=== PATIENT | female | born 1980 | race Caucasian/White ===

== ENCOUNTER 2022-09-29 22:15 | Emergency (ER) | payer BC, MEDICAID, SELFPAY ==
[2022-09-29 22:24] VITALS: BP 170/106; PULSE 104; RESP 20; TEMP 37.3; O2SAT 99; BMI 33.5
--- NOTE | 2022-09-30 00:05 | ED_ITS ---
HPI - General Adult General: Chief complaint: General Medical Stated complaint: lump on right side of jaw Time Seen by Provider: 09/29/22 23:33 History of Present Illness: Ms. Torre is a 42-year-old lady on methotrexate presenting to the emergency department for facial swelling and pain. She reports onset of symptoms atraumatic approximately 2 weeks ago with initial just mild discomfort however is now developed redness, induration, and pain with opening her mouth. She has seen primary care and was started on steroids as well as a course of antibiotics and now subsequently switched to clindamycin. She reports a history of sialolithiasis and this does feel somewhat similar that has persisted. Other than generalized malaise denies specific symptoms. End HPI Onset (ago): week(s) Location: face Radiation: neck Severity: moderate Quality: aching and dull Pain Consistency: constant Relieving factors: none Exacerbating factors: eating and movement Associated symptoms: Reports no associated symptoms Review of Systems General: Reports: 10 or more systems reviewed and unremarkable except in HPI and below PFSH ED PFSH: Medical History (Updated 10/07/22 @ 19:00 by Chucho Sousa MD) No significant past medical history Surgical History (Updated 10/07/22 @ 19:00 by Chucho Sousa MD) No significant past surgical history Physical Exam Const: COMMON NORMALS: alert GENERAL APPEARANCE: cooperative and well developed HENMT: COMMON NORMALS: normocephalic and atraumatic HEAD & SCALP: normoc ephalic and atraumatic OTHER: Right submandibular swelling and erythema with induration. There is mild trismus however no evidence of Ludewig's angina or distortion of anatomy. Eye: COMMON NORMALS: conjunctivae normal CONJUNCTIVA: Yes conjunctivae normal SCLERA: sclerae normal Neck/C-Spine: COMMON NORMALS: supple GENERAL: Yes trachea midline and No tender Resp: COMMON NORMALS: clear to auscultation bilaterally EFFORT & INSPECTION: Yes able to speak in complete sentences AUSCULTATION: clear to auscultation bilaterally Cardio: COMMON NORMALS: regular rate and regular rhythm RATE: regular rate RHYTHM: regular rhythm GI: COMMON NORMALS: Soft to palpation PALPATION: Yes Soft to palpation and No Tenderness to palpation present (GI) Extremity: GENERAL: Yes normal exam except as noted and No edema Neuro: COMMON NORMALS: moves all extremities SENSORIUM/ORIENTATION: Yes alert and No Orientation impaired Psych: COMMON NORMALS: mental status grossly normal and Normal thought process present THOUGHT PROCESS: Normal thought process present Procedures Abscess I/D Site: neck Side (if applicable): right Sedation/analgesia: midazolam and fentanyl Local Anesthetic: lidocaine 1% and with epi Amount of anesthesia used (mL): 3 Technique: incised with #11 blade Amount of fluid expressed (mL): 5 Irrigation: Yes Packing used?: plain Course Vital Signs: Vital signs: Vital Signs Temperature 99.2 F 09/29/22 22:24 Pulse Rate 107 H 09/30/22 02:57 Respiratory Rate 22 H 09/30/22 02:57 Blood Pressure 186/119 09/30/22 02:57 Pulse Oximetry 95 09/30/22 00:48 Oxygen Delivery Me thod Room Air 09/30/22 02:57 MDM - General Adult Medical Decision Making 42-year-old lady presenting with right-sided jaw swelling. Prior treatment with antibiotics and steroids without significant movement. Exam as above. No evidence of acute airway compromise. Labs with no leukocytosis, normal hemoglobin and platelet count. Metabolic pa vane without electrode arrangement. ESR and CRP elevated. hCG negative. CT neck demonstrates large right posterior molar cavity with periapical abscess and focal osteolysis on the lingual side of the mandible as well as large right submandibular space abscess. Discussed with ENT who apparently does not feel comfortable as odontogenic is likely source. Discussed with [facility] in [place], no indication for transfer from their perspective. They will see patient in close follow-up. Patient requires abscess I&D which I will perform. Consent obtained and procedure performed with purulent drainage expressed. No repair complications. Patient had improvement in trismus and pain postprocedure. Clindamycin is an appropriate antibiotic for most difficult infections and we will plan to continue this, I believe lack of improvement most likely from abscess formation/inadequate source control. The results of ED evaluation were discussed with the patient including prescriptions and/or symptomatic cares (if applicable) including appropriate and responsible use, followup plan, and return precautions. The patient verbalized understanding and felt safe for discharge. Medical Records I reviewed the patient's medical records. Lab Data I reviewed the patient's lab results. 09/29/22 00:29 09/29/22 00:[address] 09/30/22 00:24 IMPRESSION: Large right posterior molar cavity and periapical abscess with focal osteolysis of lingual side of the mandible with a large right submandibular space abscess. Laboratory Results WBC 9.1 10^3/uL (4.0-10.0) 09/29/22 00: RBC 3.87 10^6/uL (4.1-5.3) L 09/29/22 00:29 Hgb 12.0 g/dL (11.5-15.3) 09/29/22 00: Hct 35.8 % (37.0-47.0) L 09/29/22 00: MCV 92.5 fl (81-99) 09/29/22 00: MCH 31.0 pg (28.0-34.0) 09/29/22 00: MCHC 33.5 g/dL (30.0-36.0) 09/29/22 00: RDW 13.5 % (12.1-15.1) 09/29/22 00: Plt Count 231 10^3/cmm (130-400) 09/29/22 00: MPV 8.6 fL (7.4-10.4) 09/29/22 00: Neut % (Auto) 74.6 % 09/29/22 00: Lymph % (Auto) 10.3 % 09/29/22 00: [place] % (Auto) 14.3 % 09/29/22 00:29 Eos % (Auto) 0.2 % 09/29/22 00: Baso % (Auto) 0.2 % 09/29/22 00: Neut # (Auto) 6.80 10^3/uL (1.8-7.7) 09/29/22 00: Lymph # (Auto) 0.9 10^3/uL (0.8-4.8) 09/29/22 00: [place] # (Auto) 1.3 10^3/uL (0.2-0.9) H 09/29/22 00: Eos # (Auto) 0.0 10^3/uL (0.0-0.8) 09/29/22 00: Baso # (Auto) 0.0 10^3/uL (0.0-0.1) 09/29/22 00: Nucleated RBC % (auto) 0 % 09/29/22: Nucleated RBCs # 0.0 /100WBC 09/29/22: ESR 18 mm/hr (0-15) H 09/29/22: Sodium 136 mmol/L (136-145) 09/29/22: Potassium 4.1 mmol/L (3.5-5.1) 09/29/22: Chloride 101 mmol/L (98-107) 09/29/22: Carbon Dioxide 23 mmol/L (22-29) 09/29/22: Anion Gap 16.1 (5-19) 09/29/22: BUN 9 mg/dL (6-20) 09/29/22: Creatinine 0.6 mg/dL (0.5-0.9) 09/29/22 GFR Calculation 109.1 mL/min (90-130) 09/29/22 Glucose 93 mg/dL (65-115) 09/29/22 Calculated Osmolality 280 mOsm/kg (285-295) L 09/29/22: Lactate 0.9 mmol/L (0.5-2.2) 09/29/22: Calcium 8.2 mg/dL (8.5-10.5) L 09/29/22: Total Bilirubin 0.3 mg/dL (0.15-1.2) 09/29/22: AST 12 U/L (0-32) 09/29/22: ALT 6 U/L (0-33) 09/29/22: Alkaline Phosphatase 43 U/L (35-105) 09/29/22: C-Reactive Protein 221.5 mg/L (0.0-4.9) H 09/29/22: Total Protein 7.3 g/dL (6.6-8.7) 09/29/22: Albumin 3.5 g/dL (3.5-5.2) 09/29/22: Globulin 3.8 g/dL (1.3-4.6) 09/29/22: Procalcitonin 0.05 ng/mL (0-0.5) 04/12/23 00:29 HCG, Qual Negative (Negative) 09/29/22 00:29 Discharge Plan Discharge Patient Disposition: Home Clinical Impression: Submandibular abscess, Dental abscess, Dental caries Condition: Stable Prescriptions: New ondansetron 4 mg tablet,disintegrating 4 mg PO Q8H PRN (Reason: nausea and vomiting) Qty: 15 0RF oxycodone 5 mg tablet 5 mg PO Q4H PRN (Reason: pain) Qty: 20 0RF Discharge Orders: Discharge ED (Routine); Ordered 09/30/22 Ordered By: Chucho Sousa Discharge Diet: Usual diet Discharge Activity: Increase activity as tolerated Patient Instructions: Dental Caries (Cavities), Acute Wound Care (ED), Incision and Drainage (ED), Opioid Safety Activity Restrictions/Additional Instructions: You for visiting the emergency department. You were seen and evaluated for swelling in your jaw and pain. You are found to have a submandibular abscess which was drained. Packing was placed, remove this in 3 days. Please watch for evidence of worsening infection. Return immediately for any difficulty swallowing, increased swelling, fevers, difficulty breathing, or anything else that you are concerned about and feel needs emergency department evaluation. Please continue your clindamycin. I will prescribe oxycodone, use this cautiously as it is an opioid. You may use [id number] medications such as acetaminophen and ibuprofen for pain however please do not exceed the daily recommended dosage as listed on the packaging and please keep in mind that many namebrand medications contain the same active ingredients. Please avoid these medications if previously instructed to do so by another physician due to other underlying medical condition. Please follow-up with your primary care provider. Please call the [facility] scraper group and let them know that I spoke to the on-call physician regarding your care. [address] [place] [address] Return for anything else that you are concerned about and feel needs emergency department evaluation. Stand Alone Forms: Work/School Release Coding Level of Care Code ED Electrical Design Technician for Milana Payton
[2022-09-30] MEDS: morphine 4 mg/mL SDV 1 mL IVP (00:21)
[2022-09-30] MEDS: sodium chloride 0.9% 1,000 ML 999 ML IV (00:21)
--- NOTE | 2022-09-30 00:24 | CTR_ITS ---
PROCEDURE INFORMATION: Exam: CT Neck With Contrast Exam date and time: 09/30/2022 12:42 AM Age: 42 years old Clinical indication: Mass, lump, or swelling in neck; Right; Patient HX: Swelling and redness to RT submandibular region. ; Additional info: Submandibular/neck mass/paim TECHNIQUE: Imaging protocol: Computed tomography of the neck with contrast. Radiation optimization: All CT scans at this facility use at least one of these dose optimization techniques: automated exposure control; mA and/or kV adjustment per patient size (includes targeted exams where dose is matched to clinical indication); or iterative reconstruction. Contrast material: OMNI 350; Contrast volume: 100 ml; Contrast route: INTRAVENOUS (IV); REPORTING DATA: Count of CT and Cardiac NM exams in prior 12 months: This patient has received 0 known CTs and 0 known cardiac nuclear medicine studies in the 12 months prior to the current study. COMPARISON: No relevant prior studies available. RADIATION DOSE METRICS: Total DLP (mGy-cm): 211.47 FINDINGS: Dental: Large periapical abscess of the most posterior right mandibular molar. Additional dental cavity present. Pharynx: Unremarkable. No significant tonsillar enlargement. Larynx: Unremarkable. Epiglottis is normal. Prevertebral and retropharyngeal spaces: Unremarkable. Salivary glands: Unremarkable. No stones. No duct dilation. Thyroid: Normal. No enlarged or calcified nodules. Lymph nodes: Unremarkable. No lymphadenopathy. Trachea: Visualized trachea is unremarkable. Lungs: Unremarkable as visualized. Bones/joints: There is missing cortical bone on the lingual side of right posterior mandible associated with the periapical abscess. Negative for acute fracture. Soft tissues: Mass present in the soft tissues of right submandibular space. Central low-attenuation with peripheral enhancement of the tissues. Size dimensions about 3.2 cm x 3.2 cm x 2.9 cm. Surrounding soft tissue edema. No soft tissue gas. CT/CT neck w con* [id number] IMPRESSION: Large right posterior molar cavity and periapical abscess with focal osteolysis of lingual side of the mandible with a large right submandibular space abscess.
[2022-09-30 00:46] LABS: Erythrocyte Sedimentation Rate 18 mm/hr (0-15)
[2022-09-30 00:48] VITALS: BP 153/108; PULSE 96; RESP 23; O2SAT 95
[2022-09-30 00:48] LABS: Basophils % 0.2 %; Eosinophils % 0.2 %; Hematocrit 35.8 % (37.0-47.0); Lymphocytes # 0.9 10^3/uL (0.8-4.8); Lymphocytes % 10.3 %; Mean Corpuscular HGB Conc 33.5 g/dL (30.0-36.0); Mean Corpuscular Volume 92.5 fl (81-99); Mean Platelet Volume 8.6 fL (7.4-10.4); Monocytes # 1.3 10^3/uL (0.2-0.9); Monocytes % 14.3 %; Neutrophils % 74.6 %; Nucleated Red Blood Cells % 0 %; Platelet Count 231 10^3/cmm (130-400); Red Blood Count 3.87 10^6/uL (4.1-5.3); Red Cell Distribution Width 13.5 % (12.1-15.1); White Blood Count 9.1 10^3/uL (4.0-10.0)
[2022-09-30] MEDS: iohexol 350 mg/mL 500 mL Btl (per mL) IV (00:49)
[2022-09-30 01:01] LABS: HCG, Serum Qual Negative (Negative)
[2022-09-30 01:06] LABS: Alanine Aminotransferase 6 U/L (0-33); Albumin Level 3.5 g/dL (3.5-5.2); Alkaline Phosphatase 43 U/L (35-105); Anion Gap 16.1 (5-19); Aspartate Amino Transferase 12 U/L (0-32); Blood Urea Nitrogen 9 mg/dL (6-20); C Reactive Protein 221.5 mg/L (0.0-4.9); Calcium 8.2 mg/dL (8.5-10.5); Carbon Dioxide 23 mmol/L (22-29); Chloride 101 mmol/L (98-107); Globulin 3.8 g/dL (1.3-4.6); Glomerular Filtration Rate 109.1 mL/min (90-130); Glucose 93 mg/dL (65-115); Osmolality Calculated 280 mOsm/kg (285-295); Potassium 4.1 mmol/L (3.5-5.1); Sodium 136 mmol/L (136-145); Total Bilirubin 0.3 mg/dL (0.15-1.2); Total Protein 7.3 g/dL (6.6-8.7)
[2022-09-30 01:07] LABS: Lactate (Lactic Acid level) 0.9 mmol/L (0.5-2.2)
[2022-09-30 01:13] LABS: Procalcitonin 0.05 ng/mL (0-0.5)
[2022-09-30 02:57] VITALS: BP 186/119; PULSE 107; RESP 22; O2SAT 100
[2022-09-30] MEDS: fentaNYL 50 mcg/mL INJ 2mL IVP (03:01)
[2022-09-30] MEDS: midazolam 1 mg/mL INJ 2 mL 2 MG IVP (03:03)
[2022-09-30] MEDS: lidocaine-epi 1% 20 mL INJ INJECTION (03:04)
[2022-09-30] MEDS: clindamycin 600 MG/50 ML PREMIX 100 MG IV (03:45)
[2022-09-30] MEDS: oxyCODONE 5 mg IR Tab/Cap 10 MG PO (03:50)
--- NOTE | 2022-10-06 11:17 | DCPLANNER ---
esthetician and manager medical spa called patient due to no primary care - patient sees Luis Carlos Paulson at [facility] in [place]
== END 2022-09-30 04:26 | disposition home or self-care (01) ==
PROVIDERS: Emergency Provider Emergency Medicine; PCP Nurse Practitioner
DX: K12.2 Cellulitis and abscess of mouth (principal); K04.7 Periapical abscess without sinus; K02.9 Dental caries, unspecified
CPT/HCPCS: 41017; 70491; 80053; 83605; 84145; 84703; 85025; 85651; 86140; 87070; 87075; 87077; 87186; 87205; 96365; 96375; 99285; J2250; J2270; J3010; J3490; J7030; Q9967

== ENCOUNTER → 2023-08-12 09:07 | Outpatient (BNVA) | payer BC, MEDICAID, SELFPAY | PROVIDERS: PCP Nurse Practitioner; Referring Provider Nurse Practitioner; Visit Provider Nurse Practitioner | DX: M25.512 Pain in left shoulder (principal); M19.011 Primary osteoarthritis, right shoulder | CPT/HCPCS: 73030 ==

== ENCOUNTER 2023-11-05 22:20 | Emergency (ER) | payer BC, MEDICAID, SELFPAY ==
[2023-11-05 23:01] VITALS: BP 167/96; PULSE 75; RESP 17; TEMP 37.2; O2SAT 97; BMI 37.8
[2023-11-06 01:10] LABS: Basophils % 0.6 %; Eosinophils # 0.1 10^3/uL (0.0-0.8); Hematocrit 37.1 % (36-47); Lymphocytes # 1.5 10^3/uL (0.8-4.8); Lymphocytes % 30.2 %; Mean Corpuscular HGB Conc 33.4 g/dL (30-55); Mean Corpuscular Hemoglobin 30.5 pg (27-33); Mean Corpuscular Volume 91.4 fl (85-98); Mean Platelet Volume 8.8 fL (7.4-10.4); Monocytes # 0.5 10^3/uL (0.2-0.9); Monocytes % 9.9 %; Neutrophils % 56.9 %; Nucleated Red Blood Cells % 0 %; Platelet Count 230 10^3/cmm (157-399); Red Blood Count 4.06 10^6/uL (3.85-5.65); Red Cell Distribution Width 13.2 % (12.1-15.1); White Blood Count 4.93 10^3/uL (3.29-11.43)
--- NOTE | 2023-11-06 01:36 | XRR_ITS ---
PROCEDURE INFORMATION: Exam: XR Right Elbow Exam date and time: 11/06/2023 1:43 AM Age: 43 years old Clinical indication: Right; Patient HX: C/O pain and swelling to RT elbow x 1 week. No injury. History of lupus. ; Additional info: Medial R elbow pain TECHNIQUE: Imaging protocol: Radiologic exam of the right elbow. Views: 3 or more views. COMPARISON: No relevant prior studies available. FINDINGS: Bones/joints: Small intra-articular loose bodies in the ulnar trochlear joint measuring up to 2 mm. No donor site identified. Small joint effusion at the elbow. Soft tissues: Normal. XR/XR elbow RT min 3V* [id number] IMPRESSION: 1. Small intra-articular loose bodies in the ulnar trochlear joint measuring up to 2 mm. No donor site identified. 2. Small joint effusion at the elbow.
--- NOTE | 2023-11-06 01:38 | ED_ITS ---
HPI - Extremity Problem 2 General: Chief complaint: Extremity Problem,Nontraumatic Stated complaint: left arm swelling Time Seen by Provider: 11/06/23 01:27 History of Present Illness: 43-year-old female presenting with media l right elbow pain. It is worsened over several days. 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 She also has a history of lupus so this concerned her. She has a rash over the area, but she had bought a lidocaine patch at the store to put on the area, and wonders if the rash is from that. Associated symptoms: Deny fever(s) Review of Systems 2 Const: Denies: fever(s) PFSH ED 2 PFSH: Medical History Osteoarthritis of right shoulder No significant past medical history Surgical History No significant past surgical history Physical Exam 2 Const: COMMON NORMALS: no acute distress GENERAL APPEARANCE: cooperative; not ill appearing and not frail appearing Neck/C-Spine: GENERAL: Yes trachea midline Chest: CHEST: Yes Symmetrical chest wall rise Resp: COMMON NORMALS: normal respiratory effort, No retractions and No use of accessory muscles Cardio: COMMON NORMALS: regular rate and regular rhythm RATE: regular rate RHYTHM: regular rhythm GI: COMMON NORMALS: Normal to inspection, nondistended, normoactive bowel sounds present Extremity: COMMON NORMALS: no pedal edema NARRATIVE EXTREMITY EXAM: Exam of the right elbow reveals tenderness over the medial epicondyle. There is no lateral tenderness. No elbow joint effusion. No bursitis. No deformity. There is significant pain with resisted wrist flexion and pronation. Neuro: EFRA COMA SCALE: document GCS findings Efra coma scale eye opening: Spontaneous [place]io coma scale verbal response: Orientated Efra coma scale motor response: Obey commands Scio coma scale total score: 15 S ENSORY EXAM: Yes extremities (intact) Psych: COMMON NORMALS: speech normal SPEECH: Yes normal speech Skin: NARRATIVE SKIN EXAM: Small nonraised erythematous papule over the medial forearm. Appears to be contact dermatitis Course 2 Vital Signs: Vital signs: Vital Signs Temperature 99 F 11/05/23 23:01 Pulse Rate 74 11/06/23 02:18 Respiratory Rate 16 11/06/23 02:18 Blood Pressure 146/81 11/06/23 02:18 Pulse Oximetry 97 11/06/23 02:18 Oxygen Delivery Me thod Room Air 11/06/23 02:13 MDM - Extremity (Nontraumatic) Medical Decision Making She is tenderness to palpation over the medial epicondyle. Rash is likely contact dermatitis from the appearance. White blood cell count is normal. CRP is 11. She will be given a tapering dose of steroid. Ice. Bracing. Outpatient follow-up. X-rays negative for effusion, fracture, etc. It is read as potential loose body, but without significant effusion this is questionable and would not change immediate management. Lab Data 11/06/23 00:55 11/06/23 00:55 Radiology Impressions Elbow X-Ray 11/06/23 01:36 IMPRESSION: 1. Small intra-articular loose bodies in the ulnar trochlear joint measuring up to 2 mm. No donor site identified. 2. Small joint effusion at the elbow. Laboratory Results WBC 4.93 10^3/uL (3.29-11.43) 11/06/23 00:55 RBC 4.06 10^6/uL (3.85-5.65) 11/06/23 00:55 Hgb 12.40 g/dL (11.27-16.99) 11/06/23 00:55 Hct 37.1 % (36-47) 11/06/23 00:55 MCV 91.4 fl (85-98) 11/06/23 00:55 MCH 30.5 pg (27-33) 11/06/23 00:55 MCHC 33.4 g/dL (30-55) 11/06/23 00:55 RDW 13.2 % (12.1-15.1) 11/06/23 00:55 Plt Count 230 10^3/cmm (157-399) 11/06/23 00:55 MPV 8.8 fL (7.4-10.4) 11/06/23 00:55 Neut % (Auto) 56.9 % 11/06/23 00:55 Lymph % (Auto) 30.2 % 11/06/23 00:55 [place] % (Auto) 9.9 % 11/06/23 00:55 Eos % (Auto) 2.0 % 11/06/23 00:55 Baso % (Auto) 0.6 % 11/06/23 00:55 Neut # (Auto) 2.80 10^3/uL (1.8-7.7) 11/06/23 00:55 Lymph # (Auto) 1.5 10^3/uL (0.8-4.8) 11/06/23 00:55 [place] # (Auto) 0.5 10^3/uL (0.2-0.9) 11/06/23 00:55 Eos # (Auto) 0.1 10^3/uL (0.0-0.8) 11/06/23 00:55 Baso # (Auto) 0.0 10^3/uL (0.0-0.1) 11/06/23 00:55 Nucleated RBC % (auto) 0 % 11/06/23 00:55 Nucleated RBCs # 0.0 /100WBC 11/06/23 00:55 Sodium 141 mmol/L (136-145) 11/06/23 00:55 Potassium 4.3 mmol/L (3.5-5.1) 11/06/23 00:55 Chloride 106 mmol/L (98-107) 11/06/23 00:55 Carbon Dioxide 25 mmol/L (22-29) 11/06/23 00:55 Anion Gap 14.3 (5-19) 11/06/23 00:55 BUN 11 mg/dL (6-20) 11/06/23 00:55 Creatinine 0.7 mg/dL (0.5-0.9) 11/06/23 00:55 GFR Calculation 90.9 mL/min (90-130) 11/06/23 00:55 Glucose 100 mg/dL (65-115) 11/06/23 00:55 Calculated Osmolality 291 mOsm/kg (285-295) 11/06/23 00:55 Calcium 8.6 mg/dL (8.5-10.5) 11/06/23 00:55 Total Bilirubin 0.2 mg/dL (0.15-1.2) 11/06/23 00:55 AST 18 U/L (0-32) 11/06/23 00:55 ALT 12 U/L (0-33) 11/06/23 00:55 Alkaline Phosphatase 59 U/L (35-105) 11/06/23 00:55 C-Reactive Protein 11.1 mg/L (0.0-4.9) H 11/06/23 00:55 Total Protein 7.7 g/dL (6.6-8.7) 11/06/23 00:55 Albumin 3.8 g/dL (3.5-5.2) 11/06/23 00:55 Globulin 3.9 g/dL (1.3-4.6) 11/06/23 00:55 All radiology interpretation(s) finalized by discharge Discharge Plan Discharge Patient Disposition: Home Clinical Impression: Medial epicondylitis of right elbow Condition: Stable Prescriptions: New Medrol (Gelacio) 4 mg tablets,dose pack See Rx Instructions .ROUTE .COMPLEX Qty: 21 0RF Rx Instructions: orally per package directions No Action methotrexate 2.5 mg/mL solution 2.5 mg PO .weekly folic acid 1 mg tablet 1 mg PO DAILY nifedipine 60 mg tablet extended release 60 mg PO DAILY omeprazole magnesium [Prilosec OTC] 20 mg tablet,delayed release (DR/EC) 20 mg PO DAILY methocarbamol 500 mg tablet 500 mg PO TID celecoxib [Celebrex] 100 mg capsule 100 mg PO BID Qty: 180 0RF ondansetron 4 mg tablet,disintegrating 4 mg PO Q8H PRN (Reason: nausea and vomiting) Qty: 15 0RF Discharge Orders: Discharge ED (Routine); Ordered 11/06/23 Ordered By: Kb Reddy Referrals: Luis Carlos Paulson, HOME PLANNING CONSULTANT SALESPERSON [Primary Care Provider] - 4-7 days Patient Instructions: Tendinitis (ED), Opioid Safety, Pain Management Activity Restrictions/Additional Instructions: The use of a Band-Aid brace as we discussed may help. You can find these at a local pharmacy or [employer]. Ice may help with pain. Medication as directed. Follow-up with your doctor this week. Coding Level of Care Code ED Cigarette Filter Inspector for Milana Payton
[2023-11-06 01:54] LABS: Alanine Aminotransferase 12 U/L (0-33); Albumin Level 3.8 g/dL (3.5-5.2); Alkaline Phosphatase 59 U/L (35-105); Anion Gap 14.3 (5-19); Aspartate Amino Transferase 18 U/L (0-32); Blood Urea Nitrogen 11 mg/dL (6-20); C Reactive Protein 11.1 mg/L (0.0-4.9); Calcium 8.6 mg/dL (8.5-10.5); Carbon Dioxide 25 mmol/L (22-29); Chloride 106 mmol/L (98-107); Globulin 3.9 g/dL (1.3-4.6); Glomerular Filtration Rate 90.9 mL/min (90-130); Glucose 100 mg/dL (65-115); Osmolality Calculated 291 mOsm/kg (285-295); Potassium 4.3 mmol/L (3.5-5.1); Sodium 141 mmol/L (136-145); Total Bilirubin 0.2 mg/dL (0.15-1.2); Total Protein 7.7 g/dL (6.6-8.7)
[2023-11-06 02:09] VITALS: RESP 18; O2SAT 96
[2023-11-06] MEDS: oxyCODONE-APAP 5-325 mg Tablet 2 TAB PO (02:09)
[2023-11-06 02:13] VITALS: BP 146/81; PULSE 74; RESP 16; O2SAT 97
[2023-11-06 02:18] VITALS: BP 146/81; PULSE 74; RESP 16; O2SAT 97
== END 2023-11-06 02:05 | disposition home or self-care (01) ==
PROVIDERS: Emergency Provider Emergency Medicine; PCP Nurse Practitioner
DX: M77.01 Medial epicondylitis, right elbow (principal)
CPT/HCPCS: 36415; 73080; 80053; 85025; 86140; 99284

== ENCOUNTER 2025-04-22 08:43 | Inpatient (IN) | payer BC, MEDICAID, SELFPAY ==
[2025-04-22] VITALS (8 sets, daily range): BP systolic 142–173; BP diastolic 66–101; PULSE 70–83; RESP 16–18; TEMP 36.5–36.9; O2SAT 95–100; BMI 34.9
--- OUTSIDE RECORDS SUMMARY | 2025-04-22 08:49 | XMS_ITS | Encounter Summary ---
Author Organization [facility] Address [address] [place] [address] Care Team Providers Care Docking Saw Operator Name Role Phone Cc Amb, Physician Pc Primary Care Provider Un available Encounter Details Date Type Department Care Team (Late st Contact Info) Description 03/21/2025 Results Follow-Up [facility] [place] [address] [place] [address] Iliana Harvey PA [address] [place] [address] COMPREHENSIVE METABOLIC PANEL, CBC WITH DIFFERENTIAL Social History Tobacco Use Types Packs/Day Years Used Date Smoking Tobacco: Never Smokeless Tobacco: Never Comments No Sex and Gender Information Value Date Recorded Sex Assigned at Not on file Legal Sex 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 Gender Identity Not on file Sexual Orientation Not on file documented as of this encounter Plan of Treatment Upcoming Encounters Date Type Department Care Team (Late st Contact Info) Description 06/12/2025 9:00 AM SENIOR FOREMAN Procedure visit [facility] [place] [address] [phone] 06/25/2025 8:40 AM SENIOR FOREMAN Office Visit [facility] Rheumatology- [place] [address] [place] [address] Iliana Harvey PA [address] [place] [address] (work) documented as of this encounter Visit Diagnoses Not on filedocumented in this encounter Care Teams Docking Saw Operator Relationship Specialty Start Date End Date Cc Robb, Physician Pc, MD PCP - General Family Practice 12/26/24 documented as of this encounter
--- OUTSIDE RECORDS SUMMARY | 2025-04-22 08:50 | XMS_ITS | Clinical Summary ---
Author Organization [facility] [place] [place] Address [address] [place] [address] Phone Care Team Providers Care Farm Equipment Mechanic Name Role Phone Tirso Coughlin MD Primary Care Provider [phone] Allergies No known active allergies Medications NIFEdipine (ADALAT CC) 30 mg Extended Release tablet Take 30 mg by mouth daily. Active norethindrone-e .estradiol-iron (BROWN FE 1.5, 28, ORAL) Take by mouth daily. Active acetaminophen (TYLENOL) 500 mg tablet Take 500 mg by mouth every 6 hours as needed. Active predniSONE (DELTASONE) 20 mg tablet Take 1 Tablet (20 mg) by mouth daily. 30 Tablet 02/21/2020 Active predniSONE (DELTASONE) 5 mg tablet Take 1-2 Tablets (5-10 mg) by mouth daily. 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 Gender Identity Not on file Sexual Orientation Not on file Last Filed Vital Signs Vital Sign Reading Time Taken Comments Blood Pressure 108/70 10/14/2020 9:46 AM CDT Pulse 69 10/14/2020 9:46 AM CDT Temperature - - Respiratory Rate - - Oxygen Saturation 97% 10/14/2020 9:46 AM CDT Inhaled Oxygen Concentration - - Weight 79.8 kg (176 lb) 10/14/2020 9:46 AM CDT Height 154.9 cm (5' 1 ) 10/14/2020 9:46 AM CDT Body Mass Index 33.25 10/14/2020 9:46 AM CDT Plan of Treatment Health Maintenance Due Date Last Done Comments DTAP/TDAP/TD VACCINES (1 - Tdap) 1998 HEPATITIS B VACCINES (1 of 3 - 19+ 3-dose series) 1998 HPV/Cotest (21-29) 2000 CERVICAL CANCER SCREENING 2009 HPV/Cotest (30-65) 2009 PAP SMEAR 2009 BREAST CANCER SCREENING 2019 COLORECTAL SCREENING 2024 Colorectal Cancer Screening 2024 FIT-DNA Q 3 years 2024 FIT/FOBT Q 1 year 2024 Flex Sig/CT Colonography Q 5 years 2024 INFLUENZA VACCINE (#1) 2025 HPV VACCINES Aged Out No longer eligi ble based on patient's age to complete this topic Insurance [facility] Care Teams Farm Equipment Mechanic Relationship Specialty Start Date End Date Tirso Coughlin MD [facility] [place] [id number] PCP - General Family Practice 02/21/20
--- OUTSIDE RECORDS SUMMARY | 2025-04-22 08:50 | XMS_ITS | Clinical Summary ---
Author Organization [facility] Erick brownlee [place] Address [address] [place] [address] Phone Care Team Providers Care Coating Inspector Name Role Phone Cc Amb, Physician Pc MD Primary Care Provider Un available Allergies No known active allergies Medications norethindrone-e.e stradiol-iron (BROWN FE 1.530, 28, ORAL) Take by mouth daily. 0 Active acetaminophen (TYLENOL) 500 mg tablet Take 500 mg by mouth every 6 hours as needed. 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 180 Tablet 5 Active folic acid (FOLVITE) 1 mg tabletIndications :High risk medication use Take 1 Tablet (1 mg) by mouth daily. 180 Tablet 1 5 Active NIFEdipine (ADALAT CC) 60 mg Extended Release tabletIndications :Other systemic lupus erythematosus with other organ involvement Take 1 Tablet (60 mg) by mouth daily. 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),Other systemic lupus erythematosus with other organ involvement START WITH ONE CAPSULE BY MOUTH AT BEDTIME CAN INCREASE UP TO THREE CAPSULES PER DAY IF TOLERATED 90 Capsule 5 Active ondansetron (ZOFRAN ODT) 4 mg Tablet, Rapid DissolveIndicatio ns:Nausea TAKE ONE TABLET BY MOUTH EVERY 8 HOURS NEEDED FOR NAUSEA/EMESIS DISSOLVE TABLET ON TOP OF TONGUE THEN SWALLOW WITH SALIVA 30 Tablet 5 Active celecoxib (CeleBREX) 200 mg capsuleIndication s: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 180 Capsule 5 025 Discontin ued(Reord er) ondansetron (ZOFRAN ODT) 4 mg Tablet, Rapid DissolveIndicatio ns:Nausea TAKE ONE TABLET BY MOUTH EVERY 8 HOURS NEEDED FOR NAUSEA/EMESIS DISSOLVE TABLET ON TOP OF TONGUE THEN SWALLOW WITH SALIVA 30 Tablet 5 025 Discontin ued(Reord er) Active Problems Problem Noted Date Diagnosed Date Systemic lupus erythematosus 10/15/2020 Encounters Date Type Department Care Team Description 04/02/2025 External Device Data STL ABSTRACTION Provider, Abstract 04/01/2025 [facility] Rheumatology- [facility] [place] [address] [place] [phone] Iliana Harvey PA 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); Chronic pain of both knees 04/01/2025 [facility] Rheumatology- [facility] [place] [address] [place] [phone] Talia Hernandez MD Nausea 03/21/2025 Results Follow-Up [facility] Rheumatology- [facility] [address] [place] [address] Iliana Harvey PA COMPREHENSIVE METABOLIC PANEL, CBC WITH DIFFERENTIAL 03/20/2025 9:00 AM CDT [facility] [address] [place] [phone] High risk medication use 03/19/2025 External Device Data STL ABSTRACTION Provider, Abstract 03/05/2025 External Device Data STL ABSTRACTION Provider, Abstract 02/27/[address] [facility] [address] [place] [address] Talia Hernandez MD Rheumatoid arthritis involving multiple sites with positive rheumatoid factor ([facility]/HCC); Other systemic lupus erythematosus with other organ involvement (CMS/HCC) 02/26/2025 External Device Data STL ABSTRACTION Provider, Abstract 02/26/2025 External Device Data STL ABSTRACTION Provider, Abstract 02/19/2025 External Device Data STL ABSTRACTION Provider, Abstract 02/05/2025 External Device Data STL ABSTRACTION Provider, Abstract 01/22/2025 Results Follow-Up [facility] [address] [place] [phone] Iliana Harvey PA CBC WITH DIFFERENTIAL 01/21/2025 9:00 AM CDT Procedure visit [address] [address] Other systemic lupus erythematosus with other organ involvement ([facility]/HCC); Leukopenia, unspecified type from Last 3 Months Immunizations Immunization Administration Dates Next Due INFLUENZA VACCINE QUADRIVALENT 6 MOS UP IM 04/16 Influenza Seasonal Unspecified Formulation IM Social History Tobacco Use Types Packs/Day Years Used Date Smoking Tobacco: Never Smokeless Tobacco: Never Tobacco Cessation:Counseling Given: Not Answered Comments No Sex and Gender Information Value Date Recorded Sex Assigned at Not on file Legal Sex 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 Gender Identity Not on file Sexual Orientation Not on file Last Filed Vital Signs Vital Sign Reading Time Taken Comments Blood Pressure 130/98 12/12/2024 8:48 AM CDT Pulse 86 12/12/2024 8:48 AM CDT Temperature - - Respiratory Rate - - Oxygen Saturation 99% 12/12/2024 8:48 AM CDT Inhaled Oxygen Concentration - - Weight 87.5 kg (192 lb 12.8 oz) 12/12/2024 8:48 AM CDT Height 154.9 cm (5' 1 ) 12/12/2024 8:48 AM CDT Body Mass Index 36.43 12/12/2024 8:48 AM CDT Plan of Treatment Upcoming Encounters Date Type Department Care Team (Late st Contact Info) Description 06/12/2025 9:00 AM TUBE INSPECTOR Procedure visit [facility] Family [facility] [place] [address] [phone] 06/25/2025 8:40 AM TUBE INSPECTOR Office Visit [facility] Rheumatology- [place] [place] [address] [place] [address] Iliana Harvey PA [address] [place] [address] Health Maintenance Due Date Last Done Comments Pre-Diabetes and Diabetes Screening 1979 DTAP/TDAP/TD VACCINES (1 - Tdap) 1998 HEPATITIS B VACCINES (1 of 3 - 19+ 3-dose series) 1998 HPV/Cotest (21-29) 2000 CERVICAL CANCER SCREENING 2009 HPV/Cotest (30-65) 2009 PAP SMEAR 2009 BREAST CANCER SCREENING 2019 COLORECTAL SCREENING 2024 Colorectal Cancer Screening 2024 FIT-DNA Q 3 years 2024 FIT/FOBT Q 1 year 2024 Flex Sig/CT Colonography Q 5 years 2024 INFLUENZA VACCINE (#1) 2025 2, 04/16/2021 HPV VACCINES Aged Out No longer eligi ble based on patient's age to complete this topic Procedures Procedure Name Priority Date/Time Associated Diagnosis Comments CBC WITH DIFFERENTIAL Routine 03/20/2025 9:05 AM CDT High risk medication use COMPREHENSIVE METABOLIC PANEL Routine 03/20/2025 9:05 AM CDT High risk medication use CBC WITH DIFFERENTIAL Routine 01/21/2025 8:58 AM CDT Other systemic lupus erythematosus with other organ involvement (CMS/HCC) Leukopenia, unspecified type from Last 3 Months Results * (ABNORMAL) CBC WITH DIFFERENTIAL (03/20/2025 9:05 AM CDT) Only the most recent of2 resultswithin the time period is included. WBC 3.7(L) 3.8 - 10.8 Thousand/u L [facility] RBC 3.98 3.80 - 5.10 Million/uL [facility] HEMOGLOBIN 12.4 11.7 - 15.5 g/dL [facility] HEMATOCRIT 38.5 35.0 - 45.0 % [facility] MCV 96.7 80.0 - 100.0 fL [facility] MCH 31.2 27.0 - 33.0 pg [facility] MCHC 32.2 32.0 - 36.0 g/dL [facility] Comment: For adults, a slight decrease in the calculated MCHC value (in the range of 30 to 32 g/dL) is most likely not clinically significant; however, it should be interpreted with caution in correlation with other red cell parameters and the patient's clinical condition. RDW 14.3 11.0 - 15.0 % [facility] PLATELETS 209 140 - 400 Thousand/u L [facility] MPV 9.3 7.5 - 12.5 fL [facility] NEUTROPHIL ABSOLUTE 1,247(L) 1,500 - 7,800 cells/uL [facility] LYMPHOCYTE ABSOLUTE 1,676 850 - 3,900 cells/uL [facility] MONOCYTE ABSOLUTE 659 200 - 950 cells/uL [facility] EOSINOPHIL ABSOLUTE 89 15 - 500 cells/uL [facility] BASOPHILS ABSOLUTE 30 0 - 200 cells/uL [facility] NEUTROPHIL 33.7 % [facility] LYMPHOCYTES 45.3 % [facility] MONOCYTE 17.8 % [facility] EOSINOPHILS 2.4 % [facility] BASOPHILS 0.8 % [facility] Comment: Test Performed at: [email or web address] [id number] [place] [address] Rylee Ray MD Blood 03/20/2025 9:05 AM CDT 03/21/2025 1:47 AM CDT us Iliana PERDOMO HEMATOLOGY ORDERABLES Final Resu lt [facility] [phone] [email or web address] [id number] [place] [address] * (ABNORMAL) COMPREHENSIVE METABOLIC PANEL (03/20/2025 9:05 AM CDT) GLUCOSE 90 65 - 99 mg/dL [facility] Comment: Fasting reference interval BUN 17 7 - 25 mg/dL [facility] CREATININE 0.67 0.50 - 0.99 mg/dL [facility] GFR 109 > OR = 60 mL/min/1. 73m2 [facility] BUN/CREAT RATIO SEE NOTE: 6 - 22 (calc) [facility] Comment: Not Reported: BUN and Creatinine are within reference range. SODIUM 138 135 - 146 mmol/L [facility] POTASSIUM 3.8 3.5 - 5.3 mmol/L [facility] CHLORIDE 107 98 - 110 mmol/L [facility] CO2 25 20 - 32 mmol/L [facility] CALCIUM 8.1(L) 8.6 - 10.2 mg/dL [facility] TOTAL PROTEIN 6.4 6.1 - 8.1 g/dL [facility] ALBUMIN 3.3(L) 3.6 - 5.1 g/dL [facility] GLOBULIN 3.1 1.9 - 3.7 g/dL (calc) [facility] ALBUMIN/GLOBULIN RATIO 1.1 1.0 - 2.5 (calc) [facility] BILIRUBIN TOTAL 0.5 0.2 - 1.2 mg/dL [facility] ALKALINE PHOSPHATASE 43 31 - 125 U/L [facility] AST 14 10 - 35 U/L [facility] ALT 8 6 - 29 U/L [facility] Comment: Test Performed at: [email or web address] [id number] [place] [phone] Rylee Ray MD Blood 03/20/2025 9:05 AM CDT 03/21/2025 1:47 AM CDT Iliana PERDOMO CHEMISTRY ORDERABLES Final Resul t [facility] [phone] [email or web address] [id number] [place] [place] [phone] from Last 3 Months Insurance [id number] [place] [address] [facility] MEDICAID Care Teams Coating Inspector Relationship Specialty Start Date End Date Cc Robb, Physician Pc, PCP - General Family Practice 12/26/24
--- NOTE | 2025-04-22 09:29 | W.ED.SKABFB ---
Documented by User: CONOR Redmond 04/22/25 11:24 HPI - Skin/Abscess/Foreign Bdy General: Chief complaint: Skin/Abscess/Foreign Body Stated complaint: Swollen face Time Seen by Provider: 04/22/25 09:29 Source: patient Mode of arrival: ambulatory Limitations: no limitations History of Present Illness: Patient is a nice 45-year-old female presents to ED today with concerns of facial cellulitis. Patient states approximately 2 to 3 days ago it started with a small pimple between her eyebrows and quickly worsened. She was seen at the walk-in clinic yesterday by Dr. Stockton and prescribed antibiotics (Bactrim and Augmentin). She states she has had 3 doses of these but woke up this morning significantly worse. Cellulitis is now affecting the majority of her face. She is not having any systemic symptoms. She is not a diabetic. 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 MD complaint: rash and abscess/boil Onset (ago): day(s) Tetanus up to date: yes Location: face Severity: severe Relieving factors: none Exacerbating factors: none Context: none Associated symptoms: Reports no associated symptoms; Deny chills, fever(s), nausea or vomiting Treatments prior to arrival: antibiotic Related Data Home Medications ?Medication ?Instructions ?Recorded ?Confirmed folic acid 1 mg tablet 1 mg PO DAILY 08/12/23 04/22/25 methotrexate 2.5 mg/mL oral 2.5 mg PO .weekly 08/12/23 04/22/25 solution nifedipine 60 mg tablet,extended 60 mg PO DAILY 08/12/23 04/22/25 release omeprazole magnesium 20 mg 20 mg PO DAILY 08/12/23 04/22/25 tablet,delayed release (Prilosec OTC) azelastine 137 mcg (0.1 %) nasal 1 spray intranasal BID 04/22/25 04/22/25 spray celecoxib 200 mg capsule 200 mg PO BID 04/22/25 04/22/25 cetirizine 10 mg tablet 10 mg PO DAILY 04/22/25 04/22/25 cyclobenzaprine 10 mg tablet 10 mg PO BID 04/22/25 04/22/25 fluticasone propionate 50 1 spray intranasal BID 04/22/25 04/22/25 mcg/actuation nasal spray,suspension gabapentin 100 mg capsule 100 mg PO BEDTIME PRN Pain 04/22/25 04/22/25 Previous Rx's ?Medication ?Instructions ?Recorded ondansetron 4 mg disintegrating 4 mg PO Q8H PRN nausea and 09/30/22 tablet vomiting #15 tabs amoxicillin 875 mg-potassium 1 tab PO BID 10 days #20 tabs 04/21/25 clavulanate 125 mg tablet sulfamethoxazole 800 1 tab PO BID 10 days #20 tabs 04/21/25 mg-trimethoprim 160 mg tablet (Bactrim DS) Allergies Allergy/AdvReac Type Severity Reaction Status Date / Time No Known Allergies Allergy Verified 04/21/25 10:46 Review of Systems Const: Denies: fever(s), chills, body aches, fatigue or malaise Eyes: Reports: other (edema around orbits); Denies: blurry vision, photophobia, floaters or seeing flashes ENMT: Reports: sinus pain; Denies: throat pain, odynophagia, nasal discharge or nasal congestion Card: Denies: chest pain Resp: Denies: dyspnea GI: Denies: nausea or vomiting Musc: Denies: neck pain, back pain, extremity pain or joint swelling Neuro: Denies: headache(s), numbness in extremities, weakness in extremities, sensory changes or dizziness PFS ED PFSH: Medical History Osteoarthritis of right shoulder No significant past medical history Surgical History No significant past surgical history Social History Smoking and tobacco/nicotine status: never used tobacco/nicotine Alcohol intake: never Marital status: Physical Exam Const: COMMON NORMALS: no acute distress, average body habitus, patient oriented x3, no limitations, healthy appearing, alert and well nourished GENERAL APPEARANCE: cooperative ORIENTATION/CONSCIOUSNESS: Yes awake, Yes oriented to person, Yes oriented to place and Yes oriented to time HENMT: COMMON NORMALS: normocephalic, atraumatic and Normal external nose present HEAD & SCALP: normal to inspection, normocephalic and atraumatic FACE & SINUS: erythema and edema; no crepitus, no ecchymosis and no fluctuance FACE & SINUS IMAGES:  1. cellulitis/edema 2. small pustule with underlying induration-no obvious fluctuance NOSE: Normal external nose present MOUTH: Normal oral and palatal mucosa present, lip normal, tongue normal and Normal salivary glands and ducts present THROAT: posterior oropharynx normal and tonsils normal Neck/C-Spine: COMMON NORMALS: no lymphadenopathy Resp: COMMON NORMALS: normal respiratory effort and clear to auscultation bilaterally AUSCULTATION: clear to auscultation bilaterally Cardio: COMMON NORMALS: regular rate and regular rhythm RATE: regular rate RHYTHM: regular rhythm Extremity: GENERAL: Yes normal exam except as noted Neuro: EFRA COMA SCALE: document GCS findings Efra coma scale eye opening: Spontaneous Nora coma scale verbal response: Orientated Efra coma scale motor response: Obey commands Nora coma scale total score: 15 COMMON NORMALS: patient oriented x3 and CN's II-XII intact bilaterally SENSORIUM/ORIENTATION: Yes alert, Yes oriented to person, Yes oriented to place and Yes oriented to time Skin: NARRATIVE SKIN EXAM: see above; facial cellulitis Course Vital Signs: Vital signs: Vital Signs Temperature 98.2 F 04/22/25 08:54 Pulse Rate 79 04/22/25 08:54 Respiratory Rate 17 04/22/25 08:54 Blood Pressure 146/82 04/22/25 08:54 Pulse Oximetry 100 04/22/25 08:54 Oxygen Delivery Me thod Room Air 04/22/25 08:54 MDM - Skin/Abscess/Foreign Bdy Medicial Decision Making Patient is a nice 45-year-old female here with an extensive facial cellulitis that has been rapidly spreading/progressing since Tuesday. She has been prescribed oral antibiotics but continues to worsen. Her vital signs are stable. Blood work does show leukocytosis at 12.67 with a left shift. She has a significantly elevated CRP at 162. CT scan shows no drainable abscess but she does have diffuse facial cellulitis affecting midface soft tissues and bilateral preseptal regions. There was no postseptal extension. Patient would benefit from hospitalization and IV antibiotics. Spoke to Dr. De La Cruz who agrees. Spoke to Dr. Smith for admission. She does have a small pustular formation where infection started in between her eyebrows-I did unroof this area for a culture-extremely scant amount of drainage obtained-hopefully this will be enough for culture. Again-there is no drainable abscess collection via CT imaging. Differential Diagnosis Likely abscess of skin or subcutaneous tissue, urticaria, cellulitis, insect bites, impetigo and contact dermatitis Medical Records I reviewed the patient's medical records. Lab Data I reviewed the patient's lab results. 04/22/25 09:46 04/22/25 09:[address] 04/22/25 09:36 IMPRESSION: 1. Findings compatible with preseptal RIGHT greater than LEFT cellulitis with diffuse induration. No postseptal extension. 2. No evidence of drainable abscess or fluid collection. Laboratory Results WBC 12.67 10^3/uL (3.29-11.43) H 04/22/25 09:46 RBC 4.20 10^6/uL (3.85-5.65) 04/22/25 09:46 Hgb 13.20 g/dL (11.27-16.99) 04/22/25 09:46 Hct 38.8 % (36-47) 04/22/25 09:46 MCV 92.4 fl (85-98) 04/22/25 09:46 MCH 31.4 pg (27-33) 04/22/25 09:46 MCHC 34.0 g/dL (30-55) 04/22/25 09:46 RDW 13.2 % (12.1-15.1) 04/22/25 09:46 Plt Count 235 10^3/cmm (157-399) 04/22/25 09:46 MPV 8.7 fL (7.4-10.4) 04/22/25 09:46 Neut % (Auto) 80.0 % 04/22/25 09:46 Lymph % (Auto) 10.0 % 04/22/25 09:46 Marin % (Auto) 9.2 % 04/22/25 09:46 Eos % (Auto) 0.1 % 04/22/25 09:46 Baso % (Auto) 0.1 % 04/22/25 09:46 Neut # (Auto) 10.15 10^3/uL (1.8-7.7) H 04/22/25 09:46 Lymph # (Auto) 1.3 10^3/uL (0.8-4.8) 04/22/25 09:46 Marin # (Auto) 1.2 10^3/uL (0.2-0.9) H 04/22/25 09:46 Eos # (Auto) 0.0 10^3/uL (0.0-0.8) 04/22/25 09:46 Baso # (Auto) 0.0 10^3/uL (0.0-0.1) 04/22/25 09:46 Nucleated RBC % (auto) 0 % 04/22/25 09:46 Nucleated RBCs # 0.0 /100WBC 04/22/25 09:46 Sodium 139 mmol/L (136-145) 04/22/25 09:46 Potassium 3.9 mmol/L (3.5-5.1) 04/22/25 09:46 Chloride 104 mmol/L (98-107) 04/22/25 09:46 Carbon Dioxide 22 mmol/L (22-29) 04/22/25 09:46 Anion Gap 16.9 (5-19) 04/22/25 09:46 BUN 11 mg/dL (6-20) 04/22/25 09:46 Creatinine 0.7 mg/dL (0.5-0.9) 04/22/25 09:46 GFR Calculation 90.1 mL/min (90-130) 04/22/25 09:46 Glucose 105 mg/dL (65-115) 04/22/25 09:46 Calculated Osmolality 288 mOsm/kg (285-295) 04/22/25 09:46 Calcium 8.6 mg/dL (8.5-10.5) 04/22/25 09:46 Total Bilirubin 0.4 mg/dL (0.15-1.2) 04/22/25 09:46 AST 11 U/L (0-32) 04/22/25 09:46 ALT 6 U/L (0-33) 04/22/25 09:46 Alkaline Phosphatase 60 U/L (35-105) 04/22/25 09:46 C-Reactive Protein 162.1 mg/L (0.0-4.9) H 04/22/25 09:46 Total Protein 7.6 g/dL (6.6-8.7) 04/22/25 09:46 Albumin 3.8 g/dL (3.5-5.2) 04/22/25 09:46 Globulin 3.8 g/dL (1.3-4.6) 04/22/25 09:46 HCG, Qual Negative (Negative) 04/22/25 09:46 All radiology interpretation(s) finalized by discharge Discharge Plan Discharge Patient Disposition: Admitted As Inpatient Clinical Impression: Cellulitis of face Condition: Stable Coding Level of Care Code ED Ibm Bpm Developer for Chg Fwd Documented by User: Anaya De La Cruz MD 04/22/25 11:25 HPI - Skin/Abscess/Foreign Bdy General: Chief complaint: Skin/Abscess/Foreign Body Stated complaint: Swollen face Time Seen by Provider: 04/22/25 09:29 Related Data Home Medications ?Medication ?Instructions ?Recorded ?Confirmed folic acid 1 mg tablet 1 mg PO DAILY 08/12/23 04/22/25 methotrexate 2.5 mg/mL oral 2.5 mg PO .weekly 08/12/23 04/22/25 solution nifedipine 60 mg tablet,extended 60 mg PO DAILY 08/12/23 04/22/25 release omeprazole magnesium 20 mg 20 mg PO DAILY 08/12/23 04/22/25 tablet,delayed release (Prilosec OTC) azelastine 137 mcg (0.1 %) nasal 1 spray intranasal BID 04/22/25 04/22/25 spray celecoxib 200 mg capsule 200 mg PO BID 04/22/25 04/22/25 cetirizine 10 mg tablet 10 mg PO DAILY 04/22/25 04/22/25 cyclobenzaprine 10 mg tablet 10 mg PO BID 04/22/25 04/22/25 fluticasone propionate 50 1 spray intranasal BID 04/22/25 04/22/25 mcg/actuation nasal spray,suspension gabapentin 100 mg capsule 100 mg PO BEDTIME PRN Pain 04/22/25 04/22/25 Previous Rx's ?Medication ?Instructions ?Recorded ondansetron 4 mg disintegrating 4 mg PO Q8H PRN nausea and 04/13/23 tablet vomiting #15 tabs amoxicillin 875 mg-potassium 1 tab PO BID 10 days #20 tabs 04/21/25 clavulanate 125 mg tablet sulfamethoxazole 800 1 tab PO BID 10 days #20 tabs 04/21/25 mg-trimethoprim 160 mg tablet (Bactrim DS) Allergies Allergy/AdvReac Type Severity Reaction Status Date / Time No Known Allergies Allergy Verified 04/21/25 10:46 [facility] ED PFSH: Medical History Osteoarthritis of right shoulder No significant past medical history Surgical History No significant past surgical history Social History Smoking and tobacco/nicotine status: never used tobacco/nicotine Alcohol intake: never Marital status: Physical Exam HENMT: FACE & SINUS IMAGES:  1. cellulitis/edema 2. small pustule with underlying induration-no obvious fluctuance Neuro: EFRA COMA SCALE: document GCS findings Nora coma scale total score: 15 Course Vital Signs: Vital signs: Vital Signs Temperature 98.2 F 04/22/25 08:54 Pulse Rate 79 04/22/25 08:54 Respiratory Rate 17 04/22/25 08:54 Blood Pressure 146/82 04/22/25 08:54 Pulse Oximetry 100 04/22/25 08:54 Oxygen Delivery Me thod Room Air 04/22/25 08:54 MDM - Skin/Abscess/Foreign Bdy Medicial Decision Making Patient is a nice 45-year-old female here with an extensive facial cellulitis that has been rapidly spreading/progressing since Tuesday. She has been prescribed oral antibiotics but continues to worsen. Her vital signs are stable. Blood work does show leukocytosis at 12.67 with a left shift. She has a significantly elevated CRP at 162. CT scan shows no drainable abscess but she does have diffuse facial cellulitis affecting midface soft tissues and bilateral preseptal regions. There was no postseptal extension. Patient would benefit from hospitalization and IV antibiotics. Spoke to Dr. De La Cruz who agrees. Spoke to Dr. Smith for admission. She does have a small pustular formation where infection started in between her eyebrows-I did unroof this area for a culture-extremely scant amount of drainage obtained-hopefully this will be enough for culture. Again-there is no drainable abscess collection via CT imaging. The case was discussed with the midlevel provider. Evaluation and management service: I agree with the evaluation and management decisions made in this patient's care. Results interpretation: I agree with the study interpretation in this patient's care, I agree with the documentation of the study interpretation. Lab Data 04/22/25 09:46 04/22/25 09:[address] 04/22/25 09:36 IMPRESSION: 1. Findings compatible with preseptal RIGHT greater than LEFT cellulitis with diffuse induration. No postseptal extension. 2. No evidence of drainable abscess or fluid collection. Laboratory Results WBC 12.67 10^3/uL (3.29-11.43) H 04/22/25 09:46 RBC 4.20 10^6/uL (3.85-5.65) 04/22/25 09:46 Hgb 13.20 g/dL (11.27-16.99) 04/22/25 09:46 Hct 38.8 % (36-47) 04/22/25 09:46 MCV 92.4 fl (85-98) 04/22/25 09:46 MCH 31.4 pg (27-33) 04/22/25 09:46 MCHC 34.0 g/dL (30-55) 04/22/25 09:46 RDW 13.2 % (12.1-15.1) 04/22/25 09:46 Plt Count 235 10^3/cmm (157-399) 04/22/25 09:46 MPV 8.7 fL (7.4-10.4) 04/22/25 09:46 Neut % (Auto) 80.0 % 04/22/25 09:46 Lymph % (Auto) 10.0 % 04/22/25 09:46 Marin % (Auto) 9.2 % 04/22/25 09:46 Eos % (Auto) 0.1 % 04/22/25 09:46 Baso % (Auto) 0.1 % 04/22/25 09:46 Neut # (Auto) 10.15 10^3/uL (1.8-7.7) H 04/22/25 09:46 Lymph # (Auto) 1.3 10^3/uL (0.8-4.8) 04/22/25 09:46 Marin # (Auto) 1.2 10^3/uL (0.2-0.9) H 04/22/25 09:46 Eos # (Auto) 0.0 10^3/uL (0.0-0.8) 04/22/25 09:46 Baso # (Auto) 0.0 10^3/uL (0.0-0.1) 04/22/25 09:46 Nucleated RBC % (auto) 0 % 04/22/25 09:46 Nucleated RBCs # 0.0 /100WBC 04/22/25 09:46 Sodium 139 mmol/L (136-145) 04/22/25 09:46 Potassium 3.9 mmol/L (3.5-5.1) 04/22/25 09:46 Chloride 104 mmol/L (98-107) 04/22/25 09:46 Carbon Dioxide 22 mmol/L (22-29) 04/22/25 09:46 Anion Gap 16.9 (5-19) 04/22/25 09:46 BUN 11 mg/dL (6-20) 04/22/25 09:46 Creatinine 0.7 mg/dL (0.5-0.9) 04/22/25 09:46 GFR Calculation 90.1 mL/min (90-130) 04/22/25 09:46 Glucose 105 mg/dL (65-115) 04/22/25 09:46 Calculated Osmolality 288 mOsm/kg (285-295) 04/22/25 09:46 Calcium 8.6 mg/dL (8.5-10.5) 04/22/25 09:46 Total Bilirubin 0.4 mg/dL (0.15-1.2) 04/22/25 09:46 AST 11 U/L (0-32) 04/22/25 09:46 ALT 6 U/L (0-33) 04/22/25 09:46 Alkaline Phosphatase 60 U/L (35-105) 04/22/25 09:46 C-Reactive Protein 162.1 mg/L (0.0-4.9) H 04/22/25 09:46 Total Protein 7.6 g/dL (6.6-8.7) 04/22/25 09:46 Albumin 3.8 g/dL (3.5-5.2) 04/22/25 09:46 Globulin 3.8 g/dL (1.3-4.6) 04/22/25 09:46 HCG, Qual Negative (Negative) 04/22/25 09:46 Discharge Plan Discharge Patient Disposition: Admitted As Inpatient Clinical Impression: Cellulitis of face Condition: Stable Coding Level of Care Code ED Ibm Bpm Developer for Milana Payton
--- NOTE | 2025-04-22 09:36 | CT_ITS ---
WS: [id number] CT FACIAL BONES TECHNIQUE: Contrast-enhanced facial bones with coronal and sagittal reformatted images. CLINICAL INFORMATION: cellulitis; possible abscess COMPARISON: None. DLP: 618.[address] scans at [facility] use at least one of these dose optimization techniques: automated exposure control; mA and/or kV adjustment per patient size (includes targeted exams where dose is matched to clinical indication); or iterative reconstruction. FINDINGS: Cellulitis overlying the RIGHT greater than LEFT orbits and mid facial soft tissues. No evidence of postseptal extension. Normal intraconal fat. No drainable abscess or drainable fluid collection. Diffuse skin thickening. Paranasal sinuses are well aerated. Mastoid air cells are well aerated. Incidentally noted retropharyngeal course to the carotid bulbs and cervical ICAs. Normal parapharyngeal fat. Parotid glands are normal. Small 11 mm retention cyst LEFT maxillary sinus. CT/CT facial bones w con [id number] IMPRESSION: 1. Findings compatible with preseptal RIGHT greater than LEFT cellulitis with diffuse induration. No postseptal extension. 2. No evidence of drainable abscess or fluid collection.
[2025-04-22 09:57] LABS: Hematocrit 38.8 % (36-47); Hemoglobin 13.20 g/dL (11.27-16.99); Mean Corpuscular HGB Conc 34.0 g/dL (30-55); Mean Corpuscular Hemoglobin 31.4 pg (27-33); Mean Corpuscular Volume 92.4 fl (85-98); Nucleated Red Blood Cells % 0 %; Platelet Count 235 10^3/cmm (157-399); Red Blood Count 4.20 10^6/uL (3.85-5.65); White Blood Count 12.67 10^3/uL (3.29-11.43)
[2025-04-22 10:15] LABS: HCG, Serum Qual Negative (Negative)
[2025-04-22] MEDS: ondansetron 2 mg/ML SDV 2 mL 4 MG IVP (10:15)
[2025-04-22] MEDS: morphine 4 mg/mL SDV 1 mL IVP (10:15)
[2025-04-22 10:23] LABS: Alanine Aminotransferase 6 U/L (0-33); Albumin Level 3.8 g/dL (3.5-5.2); Alkaline Phosphatase 60 U/L (35-105); Anion Gap 16.9 (5-19); Aspartate Amino Transferase 11 U/L (0-32); Blood Urea Nitrogen 11 mg/dL (6-20); Calcium 8.6 mg/dL (8.5-10.5); Carbon Dioxide 22 mmol/L (22-29); Chloride 104 mmol/L (98-107); Creatinine Clr Calc Pharmacy 98.6797; Globulin 3.8 g/dL (1.3-4.6); Glucose 105 mg/dL (65-115); Osmolality Calculated 288 mOsm/kg (285-295); Potassium 3.9 mmol/L (3.5-5.1); Sodium 139 mmol/L (136-145); Total Protein 7.6 g/dL (6.6-8.7)
[2025-04-22] MEDS: iohexol 350 mg/mL 500 mL Btl (per mL) IV (10:39)
[2025-04-22 11:48] LABS: Estmated Average Glucose 88; Hemoglobin A1C 4.7 % (4.0-6.0)
[2025-04-22] MEDS: cefepime 1,000 mg SDV 1000 MG IVP ×2 (12:56→21:13)
[2025-04-22 15:00] LABS: MRSA PCR OZH (swab) MRSA Detected (Not Detecte)
--- NOTE | 2025-04-22 15:21 | PHA.VACGOAL ---
Vancomycin Goal - Goal Vancomycin Goal:: 10-15 mg/L Vancomycin Indication:: SSTI - Therapy Current therapy:: Cefepime Day of therpy:: Day []of [] . Actual body weight (kg): 184 lb 9 oz - Data Labs: WBC 12.67 10^3/uL (3.29-11.43) H 04/22/25 09:46 RBC 4.20 10^6/uL (3.85-5.65) 04/22/25 09:46 Hgb 13.20 g/dL (11.27-16.99) 04/22/25 09:46 Hct 38.8 % (36-47) 04/22/25 09:46 MCV 92.4 fl (85-98) 04/22/25 09:46 MCH 31.4 pg (27-33) 04/22/25 09:46 MCHC 34.0 g/dL (30-55) 04/22/25 09:46 RDW 13.2 % (12.1-15.1) 04/22/25 09:46 Sodium 139 mmol/L (136-145) 04/22/25 09:46 Potassium 3.9 mmol/L (3.5-5.1) 04/22/25 09:46 Chloride 104 mmol/L (98-107) 04/22/25 09:46 Carbon Dioxide 22 mmol/L (22-29) 04/22/25 09:46 Anion Gap 16.9 (5-19) 04/22/25 09:46 BUN 11 mg/dL (6-20) 04/22/25 09:46 Creatinine 0.7 mg/dL (0.5-0.9) 04/22/25 09:46 GFR Calculation 90.1 mL/min (90-130) 04/22/25 09:46 Last dialysis session:: N/A Treatment plan:: new consult Regimen:: PATIENT RECEIVED 1250 MG LOADING DOSE IN ER. STARTED [ATOEMT PM 1500 ,G Q12H PER PROTOCOL BASED ON CRCL AND WEIGHT. WILL CONTINUE TO MONITOR DAILY AND PLAN TO OBTAIN TROUGH PRIOR TO 4TH DOSE.
--- NOTE | 2025-04-22 16:30 | PM.HP ---
Providers/Chief Complaint Admitting Physician: Morena Smith MD Primary Care Provider: ABHINAV Galeas Chief Complaint: Swollen face History of Present Illness Bekah Torre is a 45 year old female who was in her usual state of health 3 days ago. She developed a small pimple around her glabella and over the next day noticed increasing swelling around the bridge of her nose. She visited the local urgent care where she was given a prescription for Augmentin and Bactrim. However the swelling continued to worsen and involve the entire upper part of her face to the point where her eyelids were straight related to the swelling. She denies any fever. She presented to the emergency room due to worsening facial cellulitis. WBC count today was noted to be at 12.6. CT of the face was performed which showed preseptal right greater than left cellulitis with diffuse induration. There was no postseptal extension. There was no evidence of a drainable abscess. She denies any history of diabetes mellitus. A1c checked today is at 4.7. Patient has a history of lupus and is on methotrexate 2.5 mg p.o. every week which she has placed on hold since developing this infection. Review of Systems General: Reports: 10 or more systems reviewed and unremarkable except in HPI and below Const: Denies: fever(s), chills or body aches Eyes: Denies: change in vision, blurry vision or photophobia ENMT: Reports: hoarseness; Denies: throat pain, enlarged tonsils, odynophagia or nasal congestion Card: Denies: chest pain, palpitations, irregular heart rhythm, edema, swelling of feet/ankles, lightheadedness, pre-syncope, dyspnea on exertion or orthopnea Resp: Denies: dyspnea, productive cough, non-productive cough, wheezing, stridor, pain on inspiration, change in phlegm color, hemoptysis or chest congestion GI: Denies: abdominal pain, nausea, vomiting, hematemesis, coffee ground emesis, dysphagia, heartburn, diarrhea, constipation, GI cramping, change in stool character, hematochezia or melena : Denies: flank pain, difficulty voiding, dysuria, urinary frequency, urinary urgency, urinary hesitancy or hematuria Musc: Denies: neck pain, back pain, extremity pain, joint swelling, joint warmth or deformity Neuro: Denies: headache(s), numbness in extremities, weakness in extremities, sensory changes, difficulty walking, frequent falls, dizziness, vertigo, behavioral changes, Slurred speech present or seizure-like activity Psych: Denies: anxiety, depression, suicidal ideation or homicidal ideation Endo: Denies: polyuria, polydipsia, tired all the time, cold intolerance or hot flashes Luis Daniel/Lymph: Denies: easy bruising or easy bleeding Medications/Allergies Home Medications ?Medication ?Instructions ?Recorded ?Confirmed ?Last Taken ?Type ondansetron 4 mg disintegrating 4 mg PO Q8H PRN nausea and 09/30/22 04/22/25 Unknown Rx tablet vomiting #15 tabs folic acid 1 mg tablet 1 mg PO DAILY 08/12/23 04/22/25 04/19/25 History methotrexate 2.5 mg/mL oral 2.5 mg PO .weekly 08/12/23 04/22/25 04/17/25 History solution nifedipine 60 mg tablet,extended 60 mg PO DAILY 08/12/23 04/22/25 Unknown History release omeprazole magnesium 20 mg 20 mg PO DAILY 08/12/23 04/22/25 04/19/25 History tablet,delayed release (Prilosec OTC) amoxicillin 875 mg-potassium 1 tab PO BID 10 days #20 tabs 04/21/25 04/22/25 04/22/25 07:00 Rx clavulanate 125 mg tablet sulfamethoxazole 800 1 tab PO BID 10 days #20 tabs 04/21/25 04/22/25 04/22/25 06:00 Rx mg-trimethoprim 160 mg tablet (Bactrim DS) azelastine 137 mcg (0.1 %) nasal 1 spray intranasal BID 04/22/25 04/22/25 04/19/25 History spray celecoxib 200 mg capsule 200 mg PO BID 04/22/25 04/22/25 04/19/25 History cetirizine 10 mg tablet 10 mg PO DAILY 04/22/25 04/22/25 04/20/25 History cyclobenzaprine 10 mg tablet 10 mg PO BID 04/22/25 04/22/25 04/19/25 History fluticasone propionate 50 1 spray intranasal BID 04/22/25 04/22/25 04/19/25 History mcg/actuation nasal spray,suspension gabapentin 100 mg capsule 100 mg PO BEDTIME PRN Pain 04/22/25 04/22/25 04/19/25 History Allergies Allergy/AdvReac Type Severity Reaction Status Date / Time No Known Allergies Allergy Verified 04/21/25 10:46 PFSH Acute PFSH: Medical History (Updated 04/22/25 @ 18:10 by Morena Smith MD) Osteoarthritis of right shoulder No significant past medical history Surgical History No significant past surgical history Social History Smoking and tobacco/nicotine status: never used tobacco/nicotine Alcohol intake: never Marital status: Vitals/I&O/Wt Last Vital Signs Temp 98.4 F 04/22/25 16:00 Pulse 70 04/22/25 16:00 Resp 16 04/22/25 16:00 BP 162/92 04/22/25 16:00 Pulse Ox 97 04/22/25 16:00 O2 Del Method Room Air 04/22/25 16:00 04/22/25 04/22/25 04/22/25 06:59 14:59 22:59 Intake Total 250 / 250 480 / 730 Balance 250 / 250 480 / 730 Weight last 48 hrs Weight 83.716 kg Weight 83.915 kg Physical Exam Narrative: GENERAL: Awake, alert, oriented, in no acute distress. [] HEENT: Normocephalic, atraumatic, PERRLA. [] CHEST: Clear to auscultation bilaterally. [] CVS: S1, S2 normal. No murmur, rubs, gallops. Peripheral pulses palpable. [] ABDOMEN: Soft, nontender. Nondistended. Bowel sounds heard. [] NEUROVASCULAR: Awake, alert. Power 5/5 all extremities. [] EXTREMITIES: No edema. [] Data 04/22/25 09:46 04/22/25 09:46 Micro: Microbiology 04/22/25 12:19 Gram Stain - Final Face 04/22/25 10:09 Blood Culture - Preliminary Blood SPECIMEN COLLECTED 04/22/25 10:04 Blood Culture - Preliminary Blood SPECIMEN COLLECTED Other data: Radiology Impressions Face CT 04/22/25 09:36 IMPRESSION: 1. Findings compatible with preseptal RIGHT greater than LEFT cellulitis with diffuse induration. No postseptal extension. 2. No evidence of drainable abscess or fluid collection. Laboratory Results WBC 12.67 10^3/uL (3.29-11.43) H 04/22/25 09:46 RBC 4.20 10^6/uL (3.85-5.65) 04/22/25 09:46 Hgb 13.20 g/dL (11.27-16.99) 04/22/25 09:46 Hct 38.8 % (36-47) 04/22/25 09:46 MCV 92.4 fl (85-98) 04/22/25 09:46 MCH 31.4 pg (27-33) 04/22/25 09:46 MCHC 34.0 g/dL (30-55) 04/22/25 09:46 RDW 13.2 % (12.1-15.1) 04/22/25 09:46 Plt Count 235 10^3/cmm (157-399) 04/22/25 09:46 MPV 8.7 fL (7.4-10.4) 04/22/25 09:46 Neut % (Auto) 80.0 % 04/22/25 09:46 Lymph % (Auto) 10.0 % 04/22/25 09:46 [place] % (Auto) 9.2 % 04/22/25 09:46 Eos % (Auto) 0.1 % 04/22/25 09:46 Baso % (Auto) 0.1 % 04/22/25 09:46 Neut # (Auto) 10.15 10^3/uL (1.8-7.7) H 04/22/25 09:46 Lymph # (Auto) 1.3 10^3/uL (0.8-4.8) 04/22/25 09:46 [place] # (Auto) 1.2 10^3/uL (0.2-0.9) H 04/22/25 09:46 Eos # (Auto) 0.0 10^3/uL (0.0-0.8) 04/22/25 09:46 Baso # (Auto) 0.0 10^3/uL (0.0-0.1) 04/22/25 09:46 Nucleated RBC % (auto) 0 % 04/22/25 09:46 Nucleated RBCs # 0.0 /100WBC 04/22/25 09:46 Sodium 139 mmol/L (136-145) 04/22/25 09:46 Potassium 3.9 mmol/L (3.5-5.1) 04/22/25 09:46 Chloride 104 mmol/L (98-107) 04/22/25 09:46 Carbon Dioxide 22 mmol/L (22-29) 04/22/25 09:46 Anion Gap 16.9 (5-19) 04/22/25 09:46 BUN 11 mg/dL (6-20) 04/22/25 09:46 Creatinine 0.7 mg/dL (0.5-0.9) 04/22/25 09:46 GFR Calculation 90.1 mL/min (90-130) 04/22/25 09:46 Glucose 105 mg/dL (65-115) 04/22/25 09:46 Estimat Average Glucose 88 04/22/25 09:46 Hemoglobin A1c 4.7 % (4.0-6.0) 04/22/25 09:46 Calculated Osmolality 288 mOsm/kg (285-295) 04/22/25 09:46 Calcium 8.6 mg/dL (8.5-10.5) 04/22/25 09:46 Total Bilirubin 0.4 mg/dL (0.15-1.2) 04/22/25 09:46 AST 11 U/L (0-32) 04/22/25 09:46 ALT 6 U/L (0-33) 04/22/25 09:46 Alkaline Phosphatase 60 U/L (35-105) 04/22/25 09:46 C-Reactive Protein 162.1 mg/L (0.0-4.9) H 04/22/25 09:46 Total Protein 7.6 g/dL (6.6-8.7) 04/22/25 09:46 Albumin 3.8 g/dL (3.5-5.2) 04/22/25 09:46 Globulin 3.8 g/dL (1.3-4.6) 04/22/25 09:46 HCG, Qual Negative (Negative) 04/22/25 09:46 Nasal MRSA (PCR) Mrsa detected (Not Detecte) A 11/03/25 12:59 A&P Assessment and plan 1. Cellulitis of face: 2. Preseptal cellulitis: Plan: 45-year-old lady with facial cellulitis and preseptal cellulitis, rapidly progressing over the last 2 days in spite of being started on oral outpatient antibiotics. Picture is attached above. Component of preseptal cellulitis and swelling extending into the eye, high risk of progression. Admit and start IV cefepime 1 g IV every 8 hours and vancomycin with goal trough 15-20. Check MRSA nasal screen. As needed pain control with Percocet/IV morphine Holding methotrexate. Okay to continue celecoxib. Continue home antihypertensive regimen. Closely monitor for improvement with initiation of IV antibiotics. PDMP PDMP Reviewed: Not Reviewed Attestations Medical Necessity Statement*: Greater than 2 midnight stay is anticipated Coding Level of Care Code Acute Code for [facility] Diagnoses Cellulitis of face L03.211 Preseptal cellulitis L03.213
[2025-04-22] MEDS: oxyCODONE-APAP 5-325 mg Tablet 1 TAB PO ×2 (18:28→23:07)
[2025-04-23] VITALS (11 sets, daily range): BP systolic 126–166; BP diastolic 75–92; PULSE 69–75; RESP 14–20; TEMP 36.4–36.8; O2SAT 95–98
[2025-04-23] MEDS: NIFEdipine ER (24 hr) 30 mg Tablet 60 MG PO (04:38)
[2025-04-23] MEDS: cefepime 1,000 mg SDV 1000 MG IVP ×3 (04:39→21:22)
[2025-04-23] MEDS: oxyCODONE-APAP 5-325 mg Tablet 1 TAB PO ×5 (05:17→21:23)
[2025-04-23 06:19] LABS: Hematocrit 37.8 % (36-47); Hemoglobin 12.70 g/dL (11.27-16.99); Mean Corpuscular HGB Conc 33.6 g/dL (30-55); Mean Corpuscular Hemoglobin 31.0 pg (27-33); Mean Corpuscular Volume 92.2 fl (85-98); Nucleated Red Blood Cells % 0 %; Platelet Count 219 10^3/cmm (157-399); Red Blood Count 4.10 10^6/uL (3.85-5.65); White Blood Count 9.70 10^3/uL (3.29-11.43)
[2025-04-23 06:40] LABS: Alanine Aminotransferase < 5 U/L (0-33); Albumin Level 3.6 g/dL (3.5-5.2); Alkaline Phosphatase 49 U/L (35-105); Anion Gap 14.4 (5-19); Aspartate Amino Transferase 10 U/L (0-32); Blood Urea Nitrogen 10 mg/dL (6-20); Calcium 8.6 mg/dL (8.5-10.5); Carbon Dioxide 21 mmol/L (22-29); Chloride 103 mmol/L (98-107); Creatinine Clr Calc Pharmacy 98.5535; Globulin 3.8 g/dL (1.3-4.6); Glucose 124 mg/dL (65-115); Osmolality Calculated 278 mOsm/kg (285-295); Potassium 4.4 mmol/L (3.5-5.1); Sodium 134 mmol/L (136-145); Total Protein 7.4 g/dL (6.6-8.7)
--- NOTE | 2025-04-23 09:23 | PC.CHAP ---
Pastoral Care Encounter/Spiritual Assessment Type of Contact [] Declined cigar tobacco rehandler visit [] Patient/Family/Request visit [] Outpatient visit [] Follow-up visit [] Physician referral [] Code/Alert [] Routine visit [] Staff referral [] Actively dying [] Patient sleeping [] Family support [] [] Out of room [] Palliative care [] [] Receiving care in room [] Pre-surgical visit [] Trauma [] Long length of stay [] ICU visit [x] Other:Contact precautions. Relational/Emotional Strength [] Patient feels connected with others/family/visitors/staff [] Distress [] Loneliness/isolation [] Abandonment Spirituality of Patient [] Person of Delores [] Attends Mandaen of their Delores [] Believes in Prayer [] Reads Bible or Latter-Day materials [] There are Spiritual issues to be addressed Mule Tender Interventions [] Prayer [] Active listening [] Non-anxious presence [] Spiritual/emotional support [] Crisis/trauma care [] Spiritual counseling [] Bereavement support [] Provided bereavement packet [] Provided Bible/devotional materials [] Provided toy/stuffed animal, coloring book to patient or family member [] Provided Communion [] Anointing/[place] [] Salvation [] Completed spiritual assessment [] Other: Impact on Illness or Injury [] Angry [] Fearful [] Anxious [] Often cries [] Exhaustion [] Unable to work [] Unable to attend buddhist [] Unable to walk/stand [] Unable to read [] Unable to drive [] Unable to eat/drink [] Unable to sleep [] Unable to be with family [] Patient intubated [] Other: Summary Time spent with patient
--- NOTE | 2025-04-23 14:37 | P.PN_ITS ---
Subjective 2 Subjective: Facial swelling is slightly better today. Color changes are evolving over the face. Edema over bilateral eyes improving compared to yesterday. Medications: Reviewed: Yes Vitals/I&O/Wt Last Vital Signs Temp 97.5 F L 04/23/25 11:47 Pulse 75 04/23/25 11:47 Resp 18 04/23/25 13:26 BP 138/75 04/23/25 11:47 Pulse Ox 96 04/23/25 13:26 O2 Del Method Room Air 04/23/25 11:47 04/22/25 04/23/25 04/23/25 22:59 06:59 14:59 Intake Total 480 / 730 300 / 1030 1260 / 1260 Output Total 200 / 200 225 / 225 Balance 480 / 730 100 / 830 1035 / 1035 Weight last 48 hrs Weight 83.716 kg Weight 83.915 kg Physical Exam 2 Narrative: GENERAL: Awake, alert, oriented, in no acute distress. [] HEENT: Normocephalic, atraumatic, PERRLA. [] NEUROVASCULAR: Awake, alert. Power 5/5 all extremities. EXTREMITIES: Facial swelling slightly improved compared to yesterday Data 04/23/25 05:54 04/23/25 05:54 Micro: Microbiology 04/22/25 12:19 Gram Stain - Final Face Abscess Culture - Preliminary Coag positive Staphylococcus 04/22/25 10:09 Blood Culture - Preliminary Blood NEGATIVE TO DATE 04/22/25 10:04 Blood Culture - Preliminary Blood NEGATIVE TO DATE A&P Assessment and plan 1. Cellulitis of face: 2. Preseptal cellulitis: Plan: 45-year-old lady with facial cellulitis and preseptal cellulitis, rapidly progressing over the last 2 days in spite of being started on oral outpatient antibiotics. Picture is attached above. Component of preseptal cellulitis and swelling extending into the eye, high risk of progression. Admit and start IV cefepime 1 g IV every 8 hours and vancomycin with goal trough 15-20. Check MRSA nasal screen. As needed pain control with Percocet/IV morphine Holding methotrexate. Okay to continue celecoxib. Continue home antihypertensive regimen. Closely monitor for improvement with initiation of IV antibiotics. April 23, 2025 Facial edema slightly improved today. Color changes involving from pink to dark red today. Expected changes. Preseptal edema is improving. Blood culture from the OR with coag positive Staphylococcus. MRSA screen was positive yesterday. Continue IV antibiotics today. If continues to show improvement next 24 hours will transition to oral treatment and discharge tomorrow. PDMP PDMP Reviewed: Not Reviewed Attestations 2 Medical Necessity Statement*: Continued need for IV antibiotics Coding Level of Care Code Acute Code for [facility] F[facility] Diagnoses Cellulitis of face L03.211 Preseptal cellulitis L03.213
[2025-04-23] MEDS: ondansetron 2 mg/ML SDV 2 mL 4 MG IVP (17:24)
[2025-04-24] VITALS (7 sets, daily range): BP systolic 124–139; BP diastolic 78–79; PULSE 68–87; RESP 16–18; TEMP 36.5–36.8; O2SAT 94–97; BMI 34.9
[2025-04-24] MEDS: NIFEdipine ER (24 hr) 30 mg Tablet 60 MG PO (04:47)
[2025-04-24] MEDS: cefepime 1,000 mg SDV 1000 MG IVP (04:47)
[2025-04-24] MEDS: oxyCODONE-APAP 5-325 mg Tablet 1 TAB PO ×2 (04:48→09:28)
--- NOTE | 2025-04-24 09:43 | US_ITS ---
WS: [id number] INDICATION: Lump on nose TECHNIQUE: Ultrasound soft tissue of concern FINDINGS: Ultrasound soft tissue area of concern bridge of nose. Area somewhat difficult to image due to superficial location No drainable abscess or drainable fluid collection. Small mixed echogenicity nodule or collection in the area of concern measuring 7 x 4 x 10 mm. Area of interest demonstrates central echogenicity with hypoechoic halo. This has a nonspecific appearance but does not appear drainable. This may represent phlegmon or tiny abscess. No other suspicious findings. US/US soft tissue/extremity 53820 IMPRESSION: See discussion above
--- NOTE | 2025-04-24 14:12 | P.DS_ITS ---
Discharge Providers Date of Admission: 04/22/25 12:23 Date of Discharge: April 24, 2025 Attending Provider at Admission: Morena Smith MD Attending Provider at Discharge: Morena Smith MD Primary Care Provider: ABHINAV Galeas Diagnoses at Discharge Discharge Diagnosis 1. Cellulitis of face: 2. Preseptal cellulitis: Reason for Visit Reason for Visit: Swollen face Hospital Course Hospital Course 45-year-old lady with facial cellulitis and preseptal cellulitis, rapidly progressing over the last 2 days in spite of being started on oral outpatient antibiotics with Augmentin and Bactrim. Component of preseptal cellulitis and swelling extending into the eye, high risk of progression. Patient was admitted in view of oral antibiotic failure and high risk of progression. She received IV antibiotics with IV cefepime and IV vancomycin. She improved with IV antibiotics. On the day of discharge today her cellulitis is much improved. There does remain significant erythema around the glabella however significantly improved since admission.'s preseptal cellulitis is also improving. A soft tissue ultrasound was performed this morning to assess for any drainable abscesses. Study was negative for the same. Overall patient is significantly improved with initiation of IV antibiotics. She is being transition to oral Augmentin and linezolid at the time of discharge. MRSA nasal screen was positive therefore linezolid has been maintained. Superficial cultures taken in the emergency room had shown MRSA. She is being discharged today in improved condition. Recommend to follow-up with PCP in 1 week to ensure continued resolution Physical Exam Narrative: General: No acute distress, AO x3 HEENT: PERRLA, pupils bilaterally equal and reactive, pallors not present Chest: Normal vesicular breath sounds, no added sounds, equal good air entry bilaterally CVS: S1-S2 regular, no murmurs, no tachycardia, no gallops, no rubs Abdomen: Soft, nontender, no organomegaly, bowel sounds present Neuro: No focal deficits, no facial deformity, AO x3, power 5/5 in all limbs Discharge Data Studies Completed and Pending Completed Studies During Hospitalization Category Date Time Status CT facial bones w con [id number] Stat Cat Scan 04/22/25 09:36 Completed US soft tissue/extremity 00045 Routine Ultrasound 04/24/25 09:43 Completed Pending at discharge Category Date Time Status Blood Culture Stat Lab 04/22/25 10:09 Results Radiology Impressions Face CT 04/22/25 09:36 IMPRESSION: 1. Findings compatible with preseptal RIGHT greater than LEFT cellulitis with diffuse induration. No postseptal extension. 2. No evidence of drainable abscess or fluid collection. Soft Tissue Ultrasound 04/24/25 09:43 IMPRESSION: See discussion above Laboratory Results WBC 9.70 10^3/uL (3.29-11.43) 04/23/25 05:54 RBC 4.10 10^6/uL (3.85-5.65) 04/23/25 05:54 Hgb 12.70 g/dL (11.27-16.99) 04/23/25 05:54 Hct 37.8 % (36-47) 04/23/25 05:54 MCV 92.2 fl (85-98) 04/23/25 05:54 MCH 31.0 pg (27-33) 04/23/25 05:54 MCHC 33.6 g/dL (30-55) 04/23/25 05:54 RDW 13.2 % (12.1-15.1) 04/23/25 05:54 Plt Count 219 10^3/cmm (157-399) 04/23/25 05:54 MPV 9.1 fL (7.4-10.4) 04/23/25 05:54 Neut % (Auto) 77.8 % 04/23/25 05:54 Lymph % (Auto) 10.7 % 04/23/25 05:54 [place] % (Auto) 10.5 % 04/23/25 05:54 Eos % (Auto) 0.1 % 04/23/25 05:54 Baso % (Auto) 0.4 % 04/23/25 05:54 Neut # (Auto) 7.54 10^3/uL (1.8-7.7) 04/23/25 05:54 Lymph # (Auto) 1.0 10^3/uL (0.8-4.8) 04/23/25 05:54 [place] # (Auto) 1.0 10^3/uL (0.2-0.9) H 04/23/25 05:54 Eos # (Auto) 0.0 10^3/uL (0.0-0.8) 04/23/25 05:54 Baso # (Auto) 0.0 10^3/uL (0.0-0.1) 04/23/25 05:54 Nucleated RBC % (auto) 0 % 04/23/25 05:54 Nucleated RBCs # 0.0 /100WBC 04/23/25 05:54 Sodium 134 mmol/L (136-145) L 04/23/25 05:54 Potassium 4.4 mmol/L (3.5-5.1) 04/23/25 05:54 Chloride 103 mmol/L (98-107) 04/23/25 05:54 Carbon Dioxide 21 mmol/L (22-29) L 04/23/25 05:54 Anion Gap 14.4 (5-19) 04/23/25 05:54 BUN 10 mg/dL (6-20) 04/23/25 05:54 Creatinine 0.7 mg/dL (0.5-0.9) 04/23/25 05:54 GFR Calculation 90.1 mL/min (90-130) 04/23/25 05:54 Glucose 124 mg/dL (65-115) H 04/23/25 05:54 Estimat Average Glucose 88 04/22/25 09:46 Hemoglobin A1c 4.7 % (4.0-6.0) 04/22/25 09:46 Calculated Osmolality 278 mOsm/kg (285-295) L 04/23/25 05:54 Calcium 8.6 mg/dL (8.5-10.5) 04/23/25 05:54 Total Bilirubin 0.3 mg/dL (0.15-1.2) 04/23/25 05:54 AST 10 U/L (0-32) 04/23/25 05:54 ALT < 5 U/L (0-33) 04/23/25 05:54 Alkaline Phosphatase 49 U/L (35-105) 04/23/25 05:54 C-Reactive Protein 162.1 mg/L (0.0-4.9) H 04/22/25 09:46 Total Protein 7.4 g/dL (6.6-8.7) 04/23/25 05:54 Albumin 3.6 g/dL (3.5-5.2) 04/23/25 05:54 Globulin 3.8 g/dL (1.3-4.6) 04/23/25 05:54 HCG, Qual Negative (Negative) 04/22/25 09:46 Nasal MRSA (PCR) Mrsa detected (Not Detecte) A 04/22/25 12:59 Vitals Last Vital Signs Temp 98.3 F 04/24/25 13:14 Pulse 87 04/24/25 13:14 Resp 16 04/24/25 13:14 BP 139/78 04/24/25 13:14 Pulse Ox 96 04/24/25 13:14 O2 Del Method Room Air 04/24/25 04:50 Discharge Plan Discharge Patient Disposition: Home Condition: Stable Prescriptions: New linezolid 600 mg tablet 600 mg PO BID 10 Days Qty: 20 0RF Continued folic acid 1 mg tablet 1 mg PO DAILY nifedipine 60 mg tablet extended release 60 mg PO DAILY omeprazole magnesium [Prilosec OTC] 20 mg tablet,delayed release (DR/EC) 20 mg PO DAILY amoxicillin-pot clavulanate 875-125 mg tablet 1 tab PO BID 10 Days Qty: 20 0RF ondansetron 4 mg tablet,disintegrating 4 mg PO Q8H PRN (Reason: nausea and vomiting) Qty: 15 0RF celecoxib 200 mg capsule 200 mg PO BID cyclobenzaprine 10 mg tablet 10 mg PO BID cetirizine 10 mg tablet 10 mg PO DAILY gabapentin 100 mg capsule 100 mg PO BEDTIME PRN (Reason: Pain) azelastine 137 mcg (0.1 %) spray,non-aerosol 1 spray intranasal BID fluticasone propionate 50 mcg/actuation spray,suspension 1 spray intranasal BID Held methotrexate 2.5 mg/mL solution 2.5 mg PO .weekly Hold Instructions: Resume on 05/06/25. hold until facial cellulitis resolves Discontinued sulfamethoxazole-trimethoprim [Bactrim DS] 800-160 mg tablet 1 tab PO BID 10 Days Qty: 20 0RF Discharge Order = DC NOW: Discharge Order (Routine); Ordered 04/24/25 Ordered By: Morena Smith Referrals: Luis Carlos Paulson PHYSICIAN OFFICE REP [Primary Care Provider, Nurse Practitioner] - 05/07/25 9:20 am Patient Instructions: Linezolid (By mouth), MRSA (Methicillin-Resistant S taphylococcus Aureus) (DC), Cellulitis (GEN), Opioid Safety, Patient Portal & Jeremy Instructions Discharge Attestations Time Spent in Discharge Care*: greater than 30 min Quality Metrics Clinical Quality Measures [ No reported AMI, CVA or VTE this stay] Coding Level of Care Code Acute Code for [facility] Diagnoses Cellulitis of face L03.211 Preseptal cellulitis L03.213
== END 2025-04-24 13:14 | disposition home or self-care (01) | DRG 383 ==
LOC: ER 11:45 → ER IP 12:27 → MEDSURG 13:57
PROVIDERS: Admitting Provider Student in an Organized Health Care Education/Training Program; Emergency Provider Physician Assistant; PCP Nurse Practitioner; Visit Provider Student in an Organized Health Care Education/Training Program
DX: L03.213 Periorbital cellulitis (principal); L03.211 Cellulitis of face; B95.62 Methicillin resistant Staphylococcus aureus infection as the cause of diseases classified elsewhere; M32.9 Systemic lupus erythematosus, unspecified
CPT/HCPCS: 36415; 70487; 76882; 80053; 83036; 84703; 85025; 86140; 87040; 87070; 87075; 87077; 87186; 87205; 96365; 96375; 99285; J0692; J2270; J2405; J3373; J9999